=== PATIENT | female | born 1980 | race Caucasian/White ===

== ENCOUNTER → 2019-09-10 | Outpatient (CLI) | payer BC ==
--- NOTE | 2019-09-10 17:42 | XR ---
EXAMINATION TYPE: XR chest 2V DATE OF EXAM: 09/10/2019 COMPARISON: None INDICATION: Short of breath TECHNIQUE: Frontal and lateral views of the chest are obtained. FINDINGS: The heart size is normal. The pulmonary vasculature is normal. The lungs are clear. IMPRESSION: 1. No acute pulmonary process.
--- NOTE | 2019-09-17 13:58 | HM ---
This is a 39-year-old female being evaluated for symptoms of shortness of breath. Baseline EKG showed sinus rhythm with episodes of sinus arrhythmia. Average heart rate is 94. Minimum is 57 and maximum heart rate 61. The patient had occasional APCs and occasional PVCs. No sustained arrhythmias were noted. Patient complained of being short of breath correlated with sinus tachycardia. Final impression #1. Sinus rhythm. #2. Occasional APCs. #3. Occasional PVCs #4, patient complained of being short of breath correlated with sinus tachycardia MTDD
== END | disposition home or self-care (01) ==
LOC: RADECHMAIN 12:29
PROVIDERS: ATTEND Pediatrics
DX: R00.2 Palpitations (principal); R06.02 Shortness of breath
CPT/HCPCS: 71046; 93225; 93226

== ENCOUNTER → 2020-11-25 | Outpatient (CLI) | payer BC ==
--- NOTE | 2020-11-30 10:04 | MM ---
Reason for exam: screening (asymptomatic). Baseline mammogram. Physical Findings: Nurse did not find any significant physical abnormalities on exam. MG Screening Mammo w CAD Bilateral CC and MLO view(s) were taken. There are scattered fibroglandular densities. Lower outer quadrant focal asymmetry left breast probably represent superimposition shadow. Additional views recommended to exclude a persisting abnormality. ASSESSMENT: Incomplete: need additional imaging evaluation, BI-RAD 0 RECOMMENDATION: Special view mammogram of the right breast. (3D) If lesion persists on supplemental views, image directed ultrasound is recommended. [facility] will attempt to contact patient to return for supplemental views and ultrasound if indicated.
== END | disposition home or self-care (01) ==
LOC: RADMAMWWP 14:32
PROVIDERS: ATTEND Pediatrics
DX: Z12.31 Encounter for screening mammogram for malignant neoplasm of breast (principal)
CPT/HCPCS: 77067

== ENCOUNTER → 2020-12-15 | Outpatient (CLI) | payer BC ==
--- NOTE | 2020-12-16 07:39 | MM ---
Reason for exam: additional evaluation requested from prior study. Last mammogram was performed 1 month ago. Physical Findings: Nurse did not find any significant physical abnormalities on exam. MG 3D Work Up W/Cad LT Spot compression CC, spot compression MLO, LM, CCRM, and CCRL view(s) were taken of the left breast. Prior study comparison: November 25, 2020, bilateral MG screening mammo w CAD. There are scattered fibroglandular densities. Lateral asymmetric density becomes less defined on additional views. An island of fibroglandular tissue is suggested. Precautionary 6 month follow up recommended. These results were verbally communicated with the patient and result sheet given to the patient on 12/15/20. ASSESSMENT: Probably benign, BI-RAD 3 RECOMMENDATION: Follow-up diagnostic mammogram of the left breast in 6 months.
== END | disposition home or self-care (01) ==
LOC: RADMAMWWP 14:45
PROVIDERS: ATTEND Pediatrics
DX: R92.2 Inconclusive mammogram (principal)
CPT/HCPCS: 77061; 77065

== ENCOUNTER → 2021-09-02 | Outpatient (CLI) | payer BC ==
--- NOTE | 2021-09-02 08:26 | MM ---
Reason for Exam: Follow-up at short interval from prior study. Last screening mammogram was performed 10 month(s) ago. Patient History: Menarche at age 11. First Full-Term at age 25. Maternal aunt had ovarian cancer at or over age 50. Risk Values: Maryan 5 year model risk: 0.7%. NCI Lifetime model risk: 10.9%. Prior Study Comparison: 11/25/2020 Bilateral Screening Mammogram, [facility]. 12/15/2020 Left Diagnostic Mammogram, [facility]. Tissue Density: Left: There are scattered fibroglandular densities. Findings: Analyzed By CAD. Asymmetric density in outer left breast is improved on the standard views of the breast obtained on today's study. No masses or suspicious calcifications are present. Overall Assessment: Benign, BI-RAD 2 Management: Screening Mammogram of both breasts in 2 months. A clinical breast exam by your physician is recommended on an annual basis and results should be correlated with mammographic findings. This exam should not preclude additional follow-up of suspicious palpable abnormalities. Results were given to the patient verbally at the time of exam. Electronically signed and approved by: Stewart Weber M.D. Radiologis
== END | disposition home or self-care (01) ==
LOC: RADMAMWWP 07:50
PROVIDERS: ATTEND Pediatrics
DX: R92.8 Other abnormal and inconclusive findings on diagnostic imaging of breast (principal)
CPT/HCPCS: 77061; 77065

== ENCOUNTER 2022-01-15 14:15 | Emergency (ER) | payer BC ==
[2022-01-15 14:28] VITALS: BP 129/75; PULSE 78; RESP 18; TEMP 98.9
[2022-01-15] MEDS ORDERED: predniSONE 20 MG TAB PO STA (15:21)
--- NOTE | 2022-01-15 15:23 | ED ---
General Adult HPI - General Chief complaint: Allergic Reaction Stated complaint: allergic reaction/rash Time Seen by Provider: 01/15/22 14:58 Source: patient Mode of arrival: ambulatory Limitations: no limitations - History of Present Illness Initial comments: This is a 41-year-old female with no past medical history presenting emergency department for a generalized rash. The patient stated over the last 1 week she experienced an itchy, generalized rash that had not improved over the last 1 week. The patient stated she does not have any known ALLERGIES but stated that she has had issues with generalized rashes before. The patient stated that she has been taking Benadryl without any complete relief. The patient came to emergency department because she had continued itching and continued rash. The patient denied any new soaps or detergents as well as any new diet. The patient was resting in bed comfortable however denied any other acute distress. - Related Data Previous Rx's Medication Instructions Recorded predniSONE 40 mg PO DAILY #8 tab 10/21/13 predniSONE [Deltasone] 40 mg PO DAILY 4 Days #8 tab 01/15/22 Allergies Allergy/AdvReac Type Severity Reaction Status Date / Time venom-honey bee Allergy Swelling Verified 01/15/22 14:28 [bee venom (honey bee)] Review of Systems ROS Statement: Those systems with pertinent positive or pertinent negative responses have been documented in the HPI. ROS Other: All systems not noted in ROS Statement are negative. Past Medical History Additional Past Medical History / Comment(s): "electrical problem with heart" History of Any Multi-Drug Resistant Organisms: None Reported Past Surgical History: Ablation Past Psychological History: No Psychological Hx Reported, Anxiety Smoking Status: Current every day smoker Past Alcohol Use History: Occasional Past Drug Use History: None Reported General Exam Limitations: no limitations General appearance: alert, in no apparent distress Head exam: Present: atraumatic, normocephalic Eye exam: Present: normal appearance, PERRL Pupils: Present: normal accommodation ENT exam: Present: normal exam, normal oropharynx, mucous membranes moist Neck exam: Present: normal inspection, full ROM Respiratory exam: Present: normal lung sounds bilaterally Cardiovascular Exam: Present: regular rate, normal rhythm, normal heart sounds GI/Abdominal exam: Present: soft, normal bowel sounds Extremities exam: Present: normal inspection, full ROM Back exam: Present: normal inspection, full ROM Neurological exam: Present: alert, oriented X3, CN II-XII intact Psychiatric exam: Present: normal affect, normal mood Skin exam: Present: warm, dry, other (Generalized urticarial rash noted on the face, neck as well as the torso and bilateral upper and lower extremities) Course Vital Signs 01/15/22 14:21 Temperature 98.9 F Pulse Rate 78 Respiratory 18 Rate Blood Pressure 129/75 O2 Sat by Pulse 99 Oximetry Medical Decision Making - Medical Decision Making The patient was seen and evaluated emergency department. Physical exam, the patient was noted to have a generalized urticarial rash but did not have any signs of infection noted. The patient denied of any known allergens or inciting events. The patient had been using Benadryl with minor relief. The patient was offered Benadryl at this time as well as prednisone. The patient stated that she needed to drive home and instead will be given instructions to use 50 mg of Benadryl while at home. The patient was given a dose of prednisone in the emergency department as well as given a prescription for the remaining 4 days of prednisone at this time. The patient was advised to continue to monitor symptoms and report back to the emergency department if they became acutely worse. The patient was also instructed to follow-up with her primary care physician for continued workup and evaluation. The patient was agreeable to this and all depressions were answered. The patient was discharged home in stable condition. Disposition Clinical Impression: Urticaria Disposition: HOME SELF-CARE Condition: Stable Instructions (If sedation given, give patient instructions): Urticaria (ED) Prescriptions: predniSONE [Deltasone] 40 mg PO DAILY 4 Days #8 tab Is patient prescribed a controlled substance at d/c from ED?: No Referrals: Gerhard Andrade MD [Primary Care Provider] - 1-2 days Time of Disposition: 15:23
== END 2022-01-15 15:56 | disposition home or self-care (01) ==
LOC: EC 14:15
DX: L50.9 Urticaria, unspecified (principal); F17.200 Nicotine dependence, unspecified, uncomplicated; Z91.030 Bee allergy status
CPT/HCPCS: 99283; J7512

== ENCOUNTER → 2022-09-28 | Outpatient (CLI) | payer BC ==
[2022-09-28 21:15] LABS: Thyroid Peroxidase Antibodies <9.0 U/mL (0.0-33.0)
== END | disposition home or self-care (01) ==
LOC: LABWHC1 14:31
PROVIDERS: ATTEND Physician Assistant
DX: E05.90 Thyrotoxicosis, unspecified without thyrotoxic crisis or storm (principal)
CPT/HCPCS: 36415; 86376; 86800

== ENCOUNTER → 2022-10-25 | Outpatient (CLI) | payer BC ==
--- NOTE | 2022-10-26 09:35 | US ---
EXAMINATION TYPE: US thyroid st tissue head/neck DATE OF EXAM: 10/25/2022 COMPARISON: NONE CLINICAL INDICATION: Female, 42 years old with history of E05.90 THYROTOXICOSIS; GLAND SIZE: Right Lobe: 5.2 x 1.8 x 2.0 cm Overall Parenchyma: heterogenous Left Lobe: 4.5 x 1.6 x 1.7 cm Overall Parenchyma: heterogenous Isthmus Thickness: 0.5 cm NODULES RIGHT: # of nodules measured on right: 0 LEFT: # of nodules measured on left: 0 ISTHMUS: # of nodules measured in the isthmus: 0 Bilateral neck scanned, no evidence of lymphadenopathy. IMPRESSION: The right lobe of the thyroid gland is slightly larger than the left. However, no discrete nodules ar e seen.
== END | disposition home or self-care (01) ==
LOC: RADUSWWP 16:10
PROVIDERS: ATTEND Pediatrics
DX: E05.90 Thyrotoxicosis, unspecified without thyrotoxic crisis or storm (principal)
CPT/HCPCS: 76536

== ENCOUNTER → 2022-11-02 | Outpatient (CLI) | payer BC ==
--- NOTE | 2022-11-03 20:55 | MM ---
Reason for Exam: Screening (asymptomatic). Last mammogram was performed 2 year(s) and 0 month(s) ago. Patient History: Menarche at age 11. First Full-Term at age 25. Maternal aunt had ovarian cancer at or over age 50. Risk Values: Maryan 5 year model risk: 0.8%. NCI Lifetime model risk: 10.8%. Prior Study Comparison: 11/25/2020 Bilateral Screening Mammogram, [facility]. 12/15/2020 Left Diagnostic Mammogram, [facility]. 09/02/2021 Left MG 3D diag mammo w/cad LT, [facility]. Tissue Density: There are scattered fibroglandular densities. Findings: Analyzed By CAD. Pattern appears symmetrical and stable. Benign vascular calcifications present bilaterally. There are scattered benign-appearing round calcifications bilaterally. There are some new calcifications in the upper outer right breast. Additional workup with attention views recommended. Left breast: No suspicious groups of microcalcifications, spiculated or lobular masses, architectural distortion or other secondary signs of malignancy are mammographically apparent. Overall Assessment: Incomplete: need additional imaging evaluation, BI-RAD 0 Management: Diagnostic Mammogram of the right breast. A negative mammogram report should not preclude additional follow up of suspicious palpable abnormalities. Patient should continue monthly self breast exam. A clinical breast exam by your physician is recommended on an annual basis and results should be correlated with mammographic findings. Electronically signed and approved by: Anthony Russo D.O. Radiologis
== END | disposition home or self-care (01) ==
LOC: RADMAMWWP 16:34
PROVIDERS: ATTEND Pediatrics
DX: Z12.31 Encounter for screening mammogram for malignant neoplasm of breast (principal)
CPT/HCPCS: 77063; 77067

== ENCOUNTER → 2023-04-03 | Outpatient (CLI) | payer BC | END | disposition home or self-care (01) | LOC: LABWHC1 15:05 | PROVIDERS: ATTEND Internal Medicine | DX: E05.90 Thyrotoxicosis, unspecified without thyrotoxic crisis or storm (principal) | CPT/HCPCS: 36415; 84443; 84445; 84481 ==